=== PATIENT | female | born 1990 | race Caucasian/White ===

== ENCOUNTER 2017-02-04 12:08 | Inpatient (IN) | payer BC ==
[~2017-02-04] VITALS: Ht 172.7 cm; Wt 100.0 kg
[2017-02-04] VITALS (23 sets, daily range): BP systolic 111–153; BP diastolic 68–96; PULSE 69–117; RESP 18–20; TEMP 98
[2017-02-04] MEDS ORDERED: SODIUM CHLORID 0.9% 500 ML INJ 500 ML IV PRN (13:15)
[2017-02-04] MEDS ORDERED: MINERAL OIL 10 ML VIAL TOPICAL PRN (13:15)
[2017-02-04] MEDS ORDERED: CALCIUM GLUCONATE 10% 1 GM/10 ML VIAL IV PUSH PRN ×2 (13:15→19:00)
[2017-02-04] MEDS ORDERED: OXYTOCIN 30 UNITS-500ML PREMIX 500 ML IV ONE (13:15)
[2017-02-04] MEDS ORDERED: CITRIC ACID-SODIUM CITRATE LIQ 30 ML UDC PO SCH (13:15)
[2017-02-04] MEDS ORDERED: LIDOCAINE HCL 1% 50 ML VIAL I-DERMAL PRN (13:15)
[2017-02-04] MEDS ORDERED: SODIUM CHLORIDE 0.9% FLUSH 10 ML FLUSH IV FLUSH PRN (13:15)
[2017-02-04] MEDS ORDERED: LIDOCAINE HCL 1% 50 ML VIAL INFIL PRN (13:15)
[2017-02-04] MEDS ORDERED: ONDANSETRON HCL 4 MG/2 ML VIAL IV PUSH PRN (13:15)
[2017-02-04] MEDS ORDERED: SODIUM CHLOR 0.9% 1000 ML INJ 1,000 ML OTHER PRN (13:15)
--- NOTE | 2017-02-04 13:31 | HHI.HP ---
HPI Chief Complaint term induction for gestational hypertension, proteinuria, concern for PreEclampsia based on symptoms Date Seen: Feb 04, 2017 Time Seen: 13:20 Travel History International Travel<30 Days: No Contact w/Intl Traveler<30Days: No Known Affected Area: No History of Present Illness HPI 26 yo G0 with EDC 02/19/17, EGA 37w6d, was seen earlier today in the office for OB problem visit, complained of new severe swelling of upper & lower extremities , facial puffiness, headache, spots in vision since yesterday. BP in office 140 /80 and 3+ proteinuria on Udip. Pt's prior BP had been normal until earlier this week when 130/76 with 1+ proteinuria when seen 01/31/17. Pt did have PIH labs done including 24h urine which was wnl last week. Pt states having pelvic pressures and irregular tightening, denies regular contractions, VB, LOF. Endorses +FM but decreased over past 24h. had been uncomplicated until past 2 weeks. Pain 2/10 dull throbbing headache R>L. Weeks Gestation: 38 Para: 0 : 1 Last Menstrual Period: May 15, 2016 Miscarriage: 0 : 0 History Past Medical History Narrative Medical gestational hypertension Obstetric History Obstetric History G1 = current Past Surgical History Narrative Surgical denies Family History Family History: Negative Social History Alcohol Use: No Tobacco Use: No Substance Abuse: No Allergies-Medications (Allergen,Severity, Reaction): Coded Allergies: No Known Allergies (Unverified , 02/04/17) Review of Systems General / Constitutional: Weight Gain, No: Fever, Chills, Other Eyes: Blurred Vision, No: Diploplia, Visual changes, Pain, Photophobia HENT: Headaches, No: Vertigo, Lightheadedness Cardiovascular: Edema, No: Irregular Rhythm, Chest Pain or Discomfort, Palpitations, Tachycardia, Syncope, Varicosities, Cyanosis Respiratory: No: Cough, Short of Breath, Other Gastrointestinal: No: Nausea, Vomiting, Diarrhea Genitourinary: Pelvic Pain (pressure), No: Decreased Urinary Output, Oliguria Musculoskeletal: No: Limited ROM, Weakness, Cramping, Edema, Pain Skin: No Rash, No Itching, No Dryness, No Lumps, No Change in Pigmentation, No Change in Nails, No Alopecia, No Lesions Neurologic: No: Weakness, Dizziness, Syncope, Focal Abnormalities, Coordination Problem, Headache, Slurred Speech, Seizures Psychiatric: No: Depression, Suicidal Ideations, Homicidal Ideation Endocrine: No: Heat Intolerance, Cold Intolerance, Polydipsia, Polyuria, Other Physical Exam Narrative GENERAL: Well-nourished, well-developed patient. SKIN: Warm and dry. HEAD: Normocephalic and atraumatic. EYES: No scleral icterus. No injection or drainage. ENT: No nasal drainage noted. Mucous membranes pink. Airway patent. NECK: Supple, trachea midline. No JVD. CARDIOVASCULAR: Regular rate and rhythm without murmurs, gallops, or rubs. RESPIRATORY: Breath sounds equal bilaterally. No accessory muscle use. BREASTS: deferred. ABDOMEN/GI: Abdomen soft, non-tender, bowel sounds present, no rebound, no guarding Gravid to 38 weeks size Fundal Height: [40] GENITOURINARY: External Genitalia: intact and normal in appearance BUS glands: [wnl] Cervix: [posterior] Dilatation: [1] Effacement: [50 Station: [-3] Presentation: [vtx] Membranes: [intact ] FHT's: +FCA 140s in office EXTREMITIES: No cyanosis; +2 edema to shins b/l, R>L only slight difference; no calf tenderness or palpable cords. BACK: Nontender without obvious deformity. No CVA tenderness. NEUROLOGICAL: Awake and alert. Motor and sensory grossly within normal limits. Five out of 5 muscle strength in all muscle groups. Normal speech. Caprini VTE Risk Assessment Caprini VTE Risk Assessment: No/Low Risk (score <= 1) VTE Pharm Contraindication: High risk for bleeding Caprini Risk Assessment Model Point Value = 1 Point Value = 2 Point Value = 3 Point Value = 5 Age 41-60 Minor surgery BMI > 25 kg/m2 Swollen legs Varicose veins or History of unexplained or recurrent spontaneous Oral contraceptives or hormone replacement Sepsis (< 1 month) Serious lung disease, including pneumonia (< 1 month) Abnormal pulmonary function Acute myocardial infarction Congestive heart failure (< 1 month) History of inflammatory bowel disease Medical patient at bed rest Age 61-74 Arthroscopic surgery Major open surgery (> 45 min) Laparoscopic surgery (> 45 min) Malignancy Confined to bed (> 72 hours) Immobilizing plaster cast Central venous access Age >= 75 History of VTE Family history of VTE Factor V Leiden Prothrombin [id number] Lupus anticoagulant Anticardiolipin antibodies Elevated serum homocysteine Heparin-induced thrombocytopenia Other congenital or acquired thrombophilia Stroke (< 1 month) Elective arthroplasty Hip, pelvis, or leg fracture Acute spinal cord injury (< 1 month) Prophylaxis Regimen Total Risk Factor Score Risk Level Prophylaxis Regimen 0-1 Low Early ambulation 2 Moderate Order ONE of the following: *Sequential Compression Device (SCD) *Heparin 5000 units SQ BID 3-4 Higher Order ONE of the following medications: *Heparin 5000 units SQ TID *Enoxaparin/Lovenox 40 mg SQ daily (WT < 150 kg, CrCl > 30 mL/min) *Enoxaparin/Lovenox 30 mg SQ daily (WT < 150 kg, CrCl > 10-29 mL/min) *Enoxaparin/Lovenox 30 mg SQ BID (WT < 150 kg, CrCl > 30 mL/min) AND/OR *Sequential Compression Device (SCD) 5 or more Highest Order ONE of the following medications: *Heparin 5000 units SQ TID (Preferred with Epidurals) *Enoxaparin/Lovenox 40 mg SQ daily (WT < 150 kg, CrCl > 30 mL/min) *Enoxaparin/Lovenox 30 mg SQ daily (WT < 150 kg, CrCl > 10-29 mL/min) *Enoxaparin/Lovenox 30 mg SQ BID (WT < 150 kg, CrCl > 30 mL/min) AND *Sequential Compression Device (SCD) Data Data Vital Signs Reviewed: Yes Orders Orders Admit To Inpatient (02/04/17 ) Diet Liquid (02/04/17 Lunch) ^ Labor Induction (02/04/17 13:15) ^ Vaginal Insert (02/04/17 13:15) ^ Vaginal Lavage (02/04/17 13:15) Heart (02/04/17 13:15) Misoprostol (Cytotec) (02/04/17 13:15) Lactated Ringer's 1000 Ml Inj (Lr 1000 M (02/04/17 13:15) Sodium Chloride 0.9% Flush (Ns Flush) (02/04/17 13:15) Sodium Chloride 0.9% Flush (Ns Flush) (02/04/17 13:15) Sodium Chlor 0.9% 1000 Ml Inj (Ns 1000 M (02/04/17 13:15) Code Status (02/04/17 13:15) Vital Signs (Adult) .Per protocol (02/04/17 13:15) Heart (02/04/17 13:15) Amnioinfusion (02/04/17 13:15) Urinary Catheter Management .ONCE (02/04/17 13:15) Sodium Chlorid 0.9% 500 Ml Inj (Ns 500 M (02/04/17 13:15) Sodium Chlor 0.9% 1000 Ml Inj (Ns 1000 M (02/04/17 13:35) Lidocaine 1% Inj (50 Ml) (Xylocaine 1% I (02/04/17 13:15) Citric Acid-Sodium Citrate Liq (Bicitra (02/04/17 13:15) Ondansetron Inj (Zofran Inj) (02/04/17 13:15) Fentanyl Inj (Fentanyl Inj) (02/04/17 13:15) Fentanyl Inj (Fentanyl Inj) (02/04/17 13:15) Complete Blood Count With Diff (02/04/17 13:15) Hold Clot (02/04/17 13:15) Abo/Rh Blood Type (02/04/17 13:15) Urinalysis - C+S If Indicated (02/04/17 13:15) Drug Screen, Random Urine (02/04/17 13:15) Resp Oxygen Non Rebreathe Mask (02/04/17 ) ^ Epidural / Intrathecal Infus (02/04/17 13:15) Oxytocin 30 Units-500ml Premix (Pitocin (02/04/17 13:15) Lidocaine 1% Inj (50 Ml) (Xylocaine 1% I (02/04/17 13:15) Light Mineral Oil (Muri-Lube Oil) (02/04/17 13:15) Intake + Output Q1H (02/04/17 13:15) Notify Parameters (02/04/17 13:15) ^ Check Deep Tendon Reflexes Q1H (02/04/17 13:15) Nifedipine (Procardia) (02/04/17 13:15) Nifedipine (Procardia) (02/04/17 13:45) Nifedipine (Procardia) (02/04/17 14:00) Calcium Gluconate Inj (Calcium Gluconate (02/04/17 13:15) Cbc No Diff, Includes Plts (02/05/17 06:00) Comprehensive Metabolic Panel (02/04/17 13:15) Comprehensive Metabolic Panel (02/05/17 06:00) Uric Acid (02/04/17 13:15) Uric Acid (02/05/17 06:00) Inpatient Certification (02/04/17 ) Specimen To Be Collected PRN (02/04/17 13:15) Specimen To Be Collected PRN (02/04/17 13:15) Protein Creat Ratio, Random Ur (02/04/17 13:15) Group B Strep: Negative Assessment/Plan Problem List: (1) Gestational hypertension ICD Codes: O13.9 - Gestational [-induced] hypertension without significant proteinuria, unspecified trimester Status: Acute Qualifiers: Qualified Codes: O13.3 - Gestational [-induced] hypertension without significant proteinuria, third trimester (2) Term ICD Codes: Z34.80 - Encounter for supervision of other normal , unspecified trimester Status: Acute Assessment and Plan 26 yo G1 with perea IUP at 37w6d admit for term IOL due to new GHTN and proteinuria, symptoms concerning for PreEclampsia 1) IOL: start with vaginal cytotec, additional methods as needed; pt aware of likely prolonged time frame based on nulliparity and low Koenig score; aware of risk of failed induction and need for ; understands indication for induction, consents 2) GHTN: BPs were normal in office until 35 week, at that time only mild elevated in diastolic, PIH labs and 24h were wnl. Over past week BP 130/76 then 140/80 in office today, 3+ proteinuria today; order PIH labs on admit, urine P/C ratio, watch closely to evaluate need for magnesium sulfate therapy 3) GBS neg 4) status: vertex, female, EFW 7.5# Discharge Planning depending on mode of delivery & blood pressures, anticipate 2-3d Ximena Saini MD Feb 04, 2017 13:31
[2017-02-04] MEDS ORDERED: SODIUM CHLOR 0.9% 1000 ML INJ 1,000 ML IV PRN (13:35)
[2017-02-04] MEDS ORDERED: NIFEdipine 10 MG CAP PO PRN ×4 (13:45→19:00)
[2017-02-04] MEDS ORDERED: MISOPROSTOL 100 MCG TAB VAGINAL ONE (14:00)
[2017-02-04 14:16] LABS: AUTOMATED NEUTROPHIL # 7.7 TH/MM3 (1.8-7.7); BASOPHIL % 0.2 % (0.0-2.0); BLOOD, URINE SMALL (NEG); EOSINOPHIL % 0.1 % (0.0-4.0); GLUCOSE,URINE NEG (NEG); HEMATOCRIT 30.5 % (35.0-46.0); HEMO FLAGS DIFF FINAL; KETONE, URINE 150 mg/dL (NEG); LYMPH % 17.1 % (9.0-44.0); LYMPHOCYTE # 1.7 TH/MM3 (1.0-4.8); MEAN CELL VOLUME 82.6 FL (80.0-100.0); MEAN CORPUSCULAR HEMOGLOBIN 27.5 PG (27.0-34.0); MEAN CORPUSCULAR HGB CONC 33.3 % (32.0-36.0); MONO % 6.3 % (0.0-8.0); NEUT % 76.3 % (16.0-70.0); NITRITE,URINE NEG (NEG); PH, URINE 6.5 (5.0-8.5); PLATELET COUNT 171 TH/MM3 (150-450); RED BLOOD COUNT 3.69 MIL/MM3 (4.00-5.30); RED CELL DISTRIBUTION WIDTH 14.8 % (11.6-17.2); URINE COLOR YELLOW (YELLW/STRAW)
[2017-02-04] MEDS: LACTATED RINGER'S 1000 ML INJ 1,000 ML IV SCH ×2 (14:27→23:00)
[2017-02-04 14:44] LABS: RBC, URINE 0-3 /hpf (0-3)
[2017-02-04 14:45] LABS: BACTERIA, URINE MOD /hpf; COMMENT (UR) CULTURE INDICATED; CULTURE IF INDICATED CULTURE INDICATED; SQUAMOUS EPITHELIAL CELL URINE > 8 /hpf (0-5)
[2017-02-04 14:53] LABS: ALT (GPT) 15 U/L (10-53); ANION GAP 10 MEQ/L (5-15); AST (GOT) 19 U/L (15-37); BICARBONATE 22.6 MEQ/L (21.0-32.0); BLOOD UREA NITROGEN 8 MG/DL (7-18); CHLORIDE 104 MEQ/L (98-107); GLOMERULAR FILTRATION RATE 119 ML/MIN (>89); POTASSIUM 3.6 MEQ/L (3.5-5.1); SODIUM (NA) 137 MEQ/L (136-145)
[2017-02-04 14:55] LABS: ALKALINE PHOSPHATASE 174 U/L (45-117); TOTAL BILIRUBIN ADULT 0.4 MG/DL (0.2-1.0)
--- NOTE | 2017-02-04 16:21 | HHI.PR ---
WATCH MECHANIC Note Note Subjective: 18-year-old G1 at 37 weeks and 6 days here originally for induction of labor for mildly elevated blood pressure in the office and concern for preeclampsia vs GHTN. Patient states she feels well overall, having some abdominal cramping, having a mild headache, no visual changes, epigastric or right upper quadrant pain. O: Blood pressure range since arrival 117-125/68-82 A/P: #1 IUP: Category 1 tracing, continuous EFM and this time, we'll change to twice a day #2 elevated blood pressures: HELLP labs within normal limits, P:C 0.19, patient has a baseline 24-hour urine on 01/27 at 124 mg, will re-collect 24 hour urine and repeat HELLP labs in the AM. Patient's is without a diagnosis at this time , explained this to her, and that based on her gestational age cannot induce without a medical indication, however if her blood pressures elevated and meet criteria for either GHTN or PREC then will proceed with induction, currently hold on her miso, ordered BPP for further reassurance and patient can return to twice a day monitoring 4 hours after PV miso #1 ( placed 1426). Will treat patients headache, continue serial blood pressure monitoring. Also discussed with her that making cervical change will not tocolyze her and explained why the miso was placed and apologized for this at it may have been premature. She and her family were understanding. Luis Mcintosh MD Feb 04, 2017 16:21
[2017-02-04] MEDS ORDERED: PROCHLORPERAZINE INJ 10 MG/2 ML VIAL IV PUSH ONE (16:30)
[2017-02-04] MEDS ORDERED: diphenhydrAMINE HCL 50 MG/ML VIAL IV PUSH ONE (16:30)
[2017-02-04] MEDS ORDERED: SODIUM CHLORIDE 0.9% FLUSH 5 ML FLUSH IV FLUSH PRN (19:00)
[2017-02-04] MEDS: MISOPROSTOL 100 MCG TAB VAGINAL SCH ×2 (19:29→23:39)
[2017-02-04] MEDS ORDERED: SODIUM CHLORIDE 0.9% FLUSH 5 ML FLUSH IV FLUSH SCH (21:00)
[2017-02-05] VITALS (62 sets, daily range): BP systolic 90–143; BP diastolic 52–99; PULSE 63–141; RESP 16–18; TEMP 97.7–99.3
[2017-02-05] MEDS: SODIUM CHLORIDE 0.9% FLUSH 10 ML FLUSH IV FLUSH SCH ×2 (00:57→07:31)
[2017-02-05] MEDS: MISOPROSTOL 100 MCG TAB VAGINAL SCH (03:37)
--- NOTE | 2017-02-05 06:44 | HHI.PR ---
DELIVERY TABLE FEEDER Note Note Subjective: Patient states she feels well overall, having increasing abdominal pain, denies leakage of fluid denies headache, visual changes, epigastric or right upper quadrant pain. O: Blood pressure range overnight: 04/15/19 Exam: 2 cm/50%/-2 station/medium consistency/anterior. Koenig score 7 A/P: 18-year-old G1 at 38 weeks 0 days here today for induction of labor for gestational hypertension, she met blood pressure criteria overnight. #1 IUP: Category 1 tracing, continuous EFM - EFW 7 at 8 pounds, cephalic, GBS negative - Posterior placenta #2 gestational hypertension: BP rate as above, HELLP labs normal arrival, no need to repeat at this time #3: Induction of labor: Secondary to #2, status post PVD mesial 20 g, #4 platelets 0 3:30, exam favorable this morning, begin Pitocin after she eats ambulatory, then patient may be on clear liquids. Patient will desire epidural later Luis Mcintosh MD Feb 05, 2017 06:44
[2017-02-05] MEDS ORDERED: OXYTOCIN 30 UNITS-500ML PREMIX 500 ML IV SCH ×2 (06:45→22:15)
[2017-02-05] MEDS: LACTATED RINGER'S 1000 ML INJ 1,000 ML IV SCH (07:29)
[2017-02-05] MEDS: ACETAMINOPHEN 325 MG TAB PO PRN (07:42)
--- NOTE | 2017-02-05 12:24 | HHI.PR ---
SHINGLES ROOFER HELPER Note Note Subjective: Went to evaluate patient, patient concerned about her labor progress, very emotional and has anxiety about safety of her baby. Her anxiety has been a pre-existing problem throughout the . O: Exam: 3 cm/70%/-2, AROM this check, clear fluid. A/P: 18-year-old G1 at 38 weeks 0 days here today for induction of labor for gestational hypertension, she met blood pressure criteria overnight. #1 IUP: Category 1 tracing, continuous EFM - EFW 7 - 8 pounds, cephalic, GBS negative - Posterior placenta #2 gestational hypertension: BP mostly normotensive, some mild ranges, HELLP labs normal arrival, no need to repeat at this time #3: Induction of labor: Secondary to #2, status post PV miso 25mcg, #4 (@0330), pit at 12 currently AROM this check (@ 1228). Continue to titrate pit. Patient will desire epidural later - Had a long discussion with patient and her partner about her labor course, reassured her it is not out of the ordinary to have a prolonged induction given unfavorable cervix on arrival and that she has a 1. Discussed options including mechanical dilation with Cook catheter versus artificial rupture membranes, her goal is to avoid AROM as long as possible. She'll doubly tell that she is most comfortable with artificial rupture, Luis Mcintosh MD Feb 05, 2017 12:24
[2017-02-05] MEDS ORDERED: ePHEDrine/NS 25 MG/5 ML SYR ONE (14:47)
[2017-02-05] MEDS ORDERED: fentaNYL 2MCG-BUPIV 0.125% INJ 100 ML ONE (14:47)
[2017-02-05] MEDS ORDERED: fentaNYL 2MCG-BUPIV 0.125% 100 ML EPIDURAL SCH (15:30)
[2017-02-05] MEDS ORDERED: NO SYSTEM NARCOTICS PRN (15:30)
[2017-02-05] MEDS ORDERED: DO NOT ADMINISTER ANTICOAGULANTS PRN (15:30)
[2017-02-05] MEDS ORDERED: ePHEDrine/NS 25 MG/5 ML SYR IV PUSH PRN (15:30)
[2017-02-05] MEDS ORDERED: MEASLES, MUMPS, RUBELLA VACCINE 0.5 ML VIAL SQ ONE (16:00)
[2017-02-05] MEDS ORDERED: DIPHTH/TETANUS/ACEL PERTUSSIS (BOOSTER) 0.5 ML VIAL/PFS IM ONE (16:00)
--- NOTE | 2017-02-05 18:07 | HHI.PR ---
WEB SIZER Note Note Subjective: Feeling comfortable after epidural, overall doing well. O: Exam: 7 cm/70%/-1. IUPC placed. A/P: 18-year-old G1 at 38 weeks 0 days here today for induction of labor for gestational hypertension, she met blood pressure criteria overnight. #1 IUP: Category 1 tracing, continuous EFM - EFW 7 - 8 pounds, cephalic, GBS negative - Posterior placenta #2 gestational hypertension: BP continue to be mostly normotensive, some mild ranges, HELLP labs normal arrival, no need to repeat at this time #3: Induction of labor: Secondary to #2, status post PV miso 25mcg, #4 (@0330), s/p AROM (@ 1228). IUPC placed to better titrate Pitocin and monitor contractions - Comfortable status post epidural. Luis Mcintosh MD Feb 05, 2017 18:07
[2017-02-05] MEDS ORDERED: IBUP-232 PO (19:46)
--- NOTE | 2017-02-05 19:48 | HHI.DCPOC ---
Discharge Care Plan Diagnosis: (1) Term (2) Normal vaginal delivery (3) Gestational hypertension Your Health Problems Are: Vaginal delivery Report Symptoms to Your Doctor -Temperature above 100.5 degrees -Redness, of incision or excessive or foul smelling drainage -Unusual pain or calf pain -Increased vaginal bleeding -Painful or difficulty urinating -Feelings of extreme sadness or anxiety after 2 weeks Goals to Promote Your Health * To prevent worsening of your condition and complications * To maintain your health at the optimal level Directions to Meet Your Goals Take your medications as prescribed Follow your dietary instruction Follow activity as directed Ensure plenty of rest for recovery Drink fluids for hydration Keep your appointments as scheduled Take your immunizations and boosters as scheduled If your symptoms worsen call your PCP, if no PCP go to Urgent Care Center or Emergency Room Smoking is Dangerous to Your Health. Avoid second hand smoke Call the 24-hour crisis hotline for domestic abuse at Luis Mcintosh MD Feb 05, 2017 19:48
[2017-02-05] MEDS ORDERED: LIDOCAINE 2%/EPINEPHrine PF 1:200,000 20ML SDV ONE (20:29)
--- NOTE | 2017-02-05 20:33 | PD.OB.DELI ---
Weeks gestation: 38 Gest age assessed date: Feb 05, 2017 Gest age assessed time: 20:00 Pt started active labor?: No Medical induction of labor?: Yes Artificial rupture of membrane: Yes Anesthesia: Epidural Episiotomy: None Vaginal Delivery: Normal, Spontaneous Presentation: Occiput anterior Nuchal Cord: None Infant: Female, Single Delivery date: Feb 05, 2017 Delivery time: 20:06 One Minute : 8 Five Minute : 9 Placenta: Spontaneous delivery, Intact (at 2014) Additional Information The patient was admitted for induction secondary to gestational hypertension, she received measles also, was artificially ruptured, and started on Pitocin. She progressed to complete, received an epidural for anesthesia, pressing complete, the bed was broken down and the prepared perineum was supported head delivered and was allowed to restitue naturally with gentle downward and upward guidance anterior and posterior shoulder were delivered respectively, followed by the torso and lower extremities with ease. Infant had spontaneous cry, the cord was clamped and cut. The perineum and vagina were inspected and found to have multiple lacerations there are extensive, extending along the vaginal sidewall up toward the cervix, there is poor visualization in the delivery room and the patient was taken operating room for repair (please see separate note for details), a single lap pad was placed in the vagina for tamponade, overall there was not excessive bleeding. The uterus firm and the patient was stable. Luis Mcintosh MD Feb 05, 2017 20:33
[2017-02-05] MEDS ORDERED: BENZOCAINE 20% TOPICAL SPRAY 60 ML CAN TOPICAL PRN (22:15)
[2017-02-05] MEDS ORDERED: ACETAMINOPHEN 325 MG TAB PO PRN (22:15)
[2017-02-05] MEDS ORDERED: ZOLPIDEM TARTRATE 5 MG TAB PO PRN (22:15)
[2017-02-05] MEDS ORDERED: ONDANSETRON ODT 4 MG TAB PO PRN (22:15)
[2017-02-05] MEDS ORDERED: oxyCODONE/ACETAMINOPHEN 5 MG/325 MG TAB PO PRN ×2 (22:15)
[2017-02-05] MEDS ORDERED: SODIUM CHLORIDE 0.9% FLUSH 10 ML FLUSH IV FLUSH PRN (22:15)
[2017-02-05] MEDS ORDERED: WITCH HAZEL 50%/GLYCERIN 12.5% 40 PAD JAR TOPICAL PRN (22:15)
[2017-02-05] MEDS ORDERED: ALUMINUM/MAGNESIUM/SIMETH 30 ML CUP PO PRN (22:15)
--- NOTE | 2017-02-05 22:19 | PD.OP ---
Operative Report Date of Surgery: Feb 05, 2017 Preoperative Diagnosis: (1) Laceration of vagina Postoperative Diagnosis: (1) Laceration of vagina Procedure: Evaluation under anesthesia and repair of vaginal lacerations Anesthesia: Epidural and TIVA Surgeon: Luis Mcintosh Paint Line Operator(s): none Operation and Findings: Specimens: None Estimated blood loss: 300 cc Complications: None Counts: Correct 2 Timeout done: Correct Findings: Large left vaginal sidewall laceration extending two [address] up the vagina to the cervix, pelvic fat visible, second-degree perineal laceration and left labial minora laceration. Urine output: None recorded, Guevara placed at the end of the case Disposition: Stable to recovery then to . Will monitor strict I's and O's, collect CBC and BMP in the morning. Description: The patient following her vaginal delivery was taken to the operating room [facility], the vaginal was prepped and draped in the sterile fashion, Deavers were placed in the vagina for visualization, using 3-0 Vicryl all lacerations were repaired, the vaginal lacerations repaired with running and several [id number] and the labial with interrupted. There is no brisk bleeding appreciated. The extent of the lacerations to lap pads were tied together and placed in the vagina for packing. A Guevara was inserted. Luis Mcintosh MD Feb 05, 2017 22:19
[2017-02-05] MEDS: IBUPROFEN 800 MG TAB PO PRN (23:51)
[2017-02-06] MEDS ORDERED: LACTATED RINGER'S 1000 ML INJ 500 ML IV ONE (05:45)
[2017-02-06 05:51] LABS: AUTOMATED NEUTROPHIL # 9.5 TH/MM3 (1.8-7.7); BASOPHIL % 0.1 % (0.0-2.0); HEMATOCRIT 24.4 % (35.0-46.0); HEMO FLAGS DIFF FINAL; LYMPH % 9.7 % (9.0-44.0); LYMPHOCYTE # 1.1 TH/MM3 (1.0-4.8); MEAN CELL VOLUME 83.4 FL (80.0-100.0); MEAN CORPUSCULAR HEMOGLOBIN 27.2 PG (27.0-34.0); MEAN CORPUSCULAR HGB CONC 32.6 % (32.0-36.0); MONO % 8.6 % (0.0-8.0); NEUT % 81.6 % (16.0-70.0); PLATELET COUNT 142 TH/MM3 (150-450); RED BLOOD COUNT 2.92 MIL/MM3 (4.00-5.30); RED CELL DISTRIBUTION WIDTH 15.4 % (11.6-17.2); WHITE BLOOD COUNT 11.7 TH/MM3 (4.0-11.0)
[2017-02-06] MEDS: IBUPROFEN 800 MG TAB PO PRN ×2 (06:11→15:25)
[2017-02-06] MEDS: DOCUSATE SODIUM 50 MG/SENNA 8.6 MG TAB PO PRN ×2 (06:11→21:37)
[2017-02-06] MEDS: SODIUM CHLORIDE 0.9% FLUSH 10 ML FLUSH IV FLUSH SCH (06:12)
[2017-02-06] MEDS: ACETAMINOPHEN 325 MG TAB PO PRN ×3 (06:12→21:37)
[2017-02-06 06:16] LABS: BICARBONATE 23.9 MEQ/L (21.0-32.0); POTASSIUM 3.6 MEQ/L (3.5-5.1)
[2017-02-06] MEDS ORDERED: HYDROCORTISONE/PRAMOXINE RECTAL FOAM 10 GM CAN RECTAL PRN (08:00)
--- NOTE | 2017-02-06 08:47 | HHI.OB ---
Subjective Post Day: 1 Remarks pt did well overnight, pain controlled w/ motrin, TPO no n/v, some cramping, having some rectal pains, denies dizziness or dyspnea Objective Vitals/I&O Vital Signs Date Time Temp Pulse Resp B/P (MAP) Pulse Ox O2 Delivery O2 Flow Rate FiO2 02/05/17 22:30 18 02/05/17 22:12 99.3 103 16 111/54 (73) 02/05/17 20:16 128 137/74 (95) 02/05/17 19:30 141 131/70 (90) 02/05/17 19:09 97 136/73 (94) 02/05/17 19:00 97 134/81 (98) 02/05/17 18:40 100 124/76 (92) 02/05/17 18:26 98.4 18 02/05/17 18:20 100 114/71 (85) 02/05/17 18:00 111 102/53 (69) 02/05/17 17:40 86 107/55 (72) 02/05/17 17:20 81 102/58 (73) 02/05/17 17:00 83 123/76 (92) 02/05/17 16:40 73 123/70 (87) 02/05/17 16:21 80 134/82 (99) 02/05/17 16:00 84 105/55 (72) 02/05/17 15:45 102 109/56 (73) 02/05/17 15:42 98 109/55 (73) 02/05/17 15:41 83 115/56 (75) 02/05/17 15:39 72 112/59 (76) 02/05/17 15:35 98 129/76 (93) 02/05/17 15:35 91 02/05/17 15:30 92 90/52 (65) 02/05/17 15:30 88 02/05/17 15:25 84 120/69 (86) 02/05/17 15:25 79 02/05/17 15:20 81 02/05/17 15:20 95 120/63 (82) 02/05/17 15:16 97.8 18 02/05/17 15:15 92 02/05/17 15:15 16 02/05/17 15:15 90 122/68 (86) 02/05/17 15:10 97 02/05/17 15:10 93 125/82 (96) 02/05/17 15:07 101 129/82 (98) 02/05/17 15:05 107 02/05/17 15:00 104 02/05/17 15:00 104 130/81 (97) 02/05/17 14:30 76 130/79 (96) 02/05/17 14:01 64 131/72 (91) 02/05/17 13:30 74 135/80 (98) 02/05/17 13:07 98.3 18 02/05/17 13:00 74 129/77 (94) 02/05/17 12:45 18 02/05/17 12:30 72 128/75 (92) 02/05/17 11:40 93 02/05/17 11:35 101 02/05/17 11:30 101 02/05/17 11:30 102 143/99 (114) 02/05/17 11:25 86 02/05/17 11:20 77 02/05/17 11:15 86 02/05/17 11:10 87 02/05/17 11:00 85 123/81 (95) 02/05/17 10:39 79 121/76 (91) 02/05/17 10:00 89 02/05/17 10:00 84 109/68 (82) 02/05/17 09:55 88 02/05/17 09:50 86 02/05/17 09:45 89 02/05/17 09:40 82 02/05/17 09:35 84 02/05/17 09:30 79 02/05/17 09:30 82 114/71 (85) 02/05/17 09:00 81 115/80 (92) 02/05/17 09:00 93 Objective Remarks GENERAL: Well-nourished, well-developed patient. CARDIOVASCULAR: Regular rate and rhythm without murmurs, gallops, or rubs. RESPIRATORY: Breath sounds equal bilaterally. No accessory muscle use. ABDOMEN/GI: Abdomen soft, non-tender. Fundus: Firm, non-tender at umbilicus. GENITOURINARY: Removed farah and also removed both lap pads, not soaked with blood but stained, no vaginal bleeding appreciated after. EXTREMITIES: No cyanosis or edema, non-tender, without signs of DVT, SCDs on. Medications and IVs Current Medications Medications (Trade) Dose Ordered Sig/Lilli Route Start Time Stop Time Status Last Admin (Calcium Gluconate Inj) 1 gm UNSCH PRN IV PUSH 02/04/17 13:15 (Tylenol) 650 mg Q4H PRN PO 02/04/17 16:30 02/06/17 06:12 Miscellaneous Information No systemic narcotics to be given except... UNSCH PRN .XX 02/05/17 15:30 02/06/17 15:29 Miscellaneous Information DO NOT ADMINISTER ANY ANTICOAGUL... UNSCH PRN .XX 02/05/17 15:30 02/06/17 15:29 (ePHEDrine/NS 25 MG/5 ML SYR) 10 mg UNSCH PRN IV PUSH 02/05/17 15:30 02/06/17 15:29 (fentaNYL INJ) 50 mcg Q1H PRN IV PUSH 02/05/17 18:30 (fentaNYL INJ) 100 mcg Q1H PRN IV PUSH 02/05/17 18:30 (NS Flush) 2 ml BID IV FLUSH 02/06/17 21:00 02/06/17 06:12 (NS Flush) 2 ml UNSCH PRN IV FLUSH 02/05/17 22:15 (Tylenol) 650 mg Q4H PRN PO 02/05/17 22:15 (Motrin) 800 mg Q8H PRN PO 02/05/17 22:15 02/06/17 06:11 (Percocet 5-325 Mg) 1 tab Q4H PRN PO 02/05/17 22:15 (Percocet 5-325 Mg) 2 tab Q4H PRN PO 02/05/17 22:15 (Americaine 20% Top Spr) 1 spray Q4H PRN TOPICAL 02/05/17 22:15 02/05/17 23:58 (Tucks Pads) 1 applic QID PRN TOPICAL 02/05/17 22:15 02/05/17 23:57 (Elizabeth-Colace) 2 tab Q12H PRN PO 02/05/17 22:15 02/06/17 06:11 (Ambien) 5 mg HS PRN PO 02/05/17 22:15 (Mag-Al Plus Susp Liq) 15 ml Q8H PRN PO 02/05/17 22:15 (Zofran Odt) 4 mg Q6H PRN PO 02/05/17 22:15 (Proctofoam Hc Rectal Foam) 1 applic Q8H PRN RECTAL 02/06/17 08:00 Assessment/Plan Problem List: (1) Gestational hypertension ICD Codes: O13.9 - Gestational [-induced] hypertension without significant proteinuria, unspecified trimester Status: Acute Qualifiers: Qualified Codes: O13.3 - Gestational [-induced] hypertension without significant proteinuria, third trimester (2) Laceration of vagina ICD Codes: S31.41XA - Laceration without foreign body of vagina and vulva, initial encounter (3) Normal vaginal delivery ICD Codes: O80 - Encounter for full-term uncomplicated delivery Assessment and Plan 26 yo s/p term , was IOL for GHTN. 1) PPD #1: doing well, continue routine care, anticipate d/c home tomorrow. 2) Vaginal laceration: extensive, required repair in OR last night after delivery, packing and farah removed this AM, output appropriate, not recorded correctly by nursing but voided 100 cc an hour this AM. AM CBC seems appropriate for EBL, will repeat tomorrow AM as she is increased risk of vaginal hematoma. 3) Anemia: see above, will d/c with Fe and colace 4) GHTN: BPS normotensive since delivery. 5) PP: female, breast. Discharge Planning depending on mode of delivery & blood pressures, anticipate 2-3d Luis Mcintosh MD Feb 06, 2017 08:47
[2017-02-06] MEDS ORDERED: NORC5TAB PO (08:49)
[2017-02-06] MEDS ORDERED: COLA100C5 PO (08:50)
[2017-02-06] MEDS ORDERED: FERR325T18 PO (08:51)
[2017-02-06] MEDS ORDERED: ACETAMINOPHEN/HYDROcodone 325 MG/5 MG TAB PO PRN ×2 (09:00)
[2017-02-07] MEDS: IBUPROFEN 800 MG TAB PO PRN ×2 (02:46→11:29)
[2017-02-07] MEDS: SODIUM CHLORIDE 0.9% FLUSH 10 ML FLUSH IV FLUSH SCH (05:51)
[2017-02-07 05:59] LABS: AUTOMATED NEUTROPHIL # 8.4 TH/MM3 (1.8-7.7); BASOPHIL % 0.2 % (0.0-2.0); EOSINOPHIL % 0.3 % (0.0-4.0); HEMATOCRIT 22.2 % (35.0-46.0); HEMO FLAGS DIFF FINAL; LYMPH % 13.6 % (9.0-44.0); LYMPHOCYTE # 1.5 TH/MM3 (1.0-4.8); MEAN CELL VOLUME 84.3 FL (80.0-100.0); MEAN CORPUSCULAR HEMOGLOBIN 27.5 PG (27.0-34.0); MEAN CORPUSCULAR HGB CONC 32.6 % (32.0-36.0); MONO % 7.5 % (0.0-8.0); NEUT % 78.4 % (16.0-70.0); PLATELET COUNT 137 TH/MM3 (150-450); RED BLOOD COUNT 2.63 MIL/MM3 (4.00-5.30); RED CELL DISTRIBUTION WIDTH 15.4 % (11.6-17.2); WHITE BLOOD COUNT 10.7 TH/MM3 (4.0-11.0)
[2017-02-07] MEDS: ACETAMINOPHEN 325 MG TAB PO PRN ×2 (07:12→11:30)
[2017-02-07 07:55] VITALS: BP 122/71; PULSE 67; RESP 18; TEMP 97.9
--- NOTE | 2017-02-07 08:56 | HHI.OB ---
Subjective Post Day: 2 Remarks PPD#2, S/P traumatic vaginal delivery with extensive repair, BM today,voiding, pain controlled. Is anemic but no orthostatic symptoms. Objective Vitals/I&O Vital Signs Date Time Temp Pulse Resp B/P (MAP) Pulse Ox O2 Delivery O2 Flow Rate FiO2 02/07/17 03:46 18 02/06/17 22:37 18 Objective Remarks GENERAL: Well-nourished, well-developed patient. CARDIOVASCULAR: Regular rate and rhythm without murmurs, gallops, or rubs. RESPIRATORY: Breath sounds equal bilaterally. No accessory muscle use. ABDOMEN/GI: Abdomen soft, non-tender. Fundus: Firm, non-tender at umbilicus. GENITOURINARY: defered, no excessive bleeding/pain. EXTREMITIES: No cyanosis or edema, non-tender, without signs of DVT, SCDs on. Medications and IVs Current Medications Medications (Trade) Dose Ordered Sig/Lilli Route Start Time Stop Time Status Last Admin (Calcium Gluconate Inj) 1 gm UNSCH PRN IV PUSH 02/04/17 13:15 (Tylenol) 650 mg Q4H PRN PO 02/04/17 16:30 02/07/17 07:12 (fentaNYL INJ) 50 mcg Q1H PRN IV PUSH 02/05/17 18:30 (fentaNYL INJ) 100 mcg Q1H PRN IV PUSH 02/05/17 18:30 (NS Flush) 2 ml BID IV FLUSH 02/06/17 21:00 02/07/17 05:51 (NS Flush) 2 ml UNSCH PRN IV FLUSH 02/05/17 22:15 (Motrin) 800 mg Q8H PRN PO 02/05/17 22:15 02/07/17 02:46 (Americaine 20% Top Spr) 1 spray Q4H PRN TOPICAL 02/05/17 22:15 02/05/17 23:58 (Tucks Pads) 1 applic QID PRN TOPICAL 02/05/17 22:15 02/05/17 23:57 ([place]-Colace) 2 tab Q12H PRN PO 02/05/17 22:15 02/06/17 21:37 (Ambien) 5 mg HS PRN PO 02/05/17 22:15 (Mag-Al Plus Susp Liq) 15 ml Q8H PRN PO 02/05/17 22:15 (Zofran Odt) 4 mg Q6H PRN PO 02/05/17 22:15 (Proctofoam Hc Rectal Foam) 1 applic Q8H PRN RECTAL 02/06/17 08:00 02/06/17 16:36 ([place] 5-325 Mg) 1 tab Q6H PRN PO 02/06/17 09:00 ([place] 5-325 Mg) 2 tab Q6H PRN PO 02/06/17 09:00 Assessment/Plan Problem List: (1) Gestational hypertension ICD Codes: O13.9 - Gestational [-induced] hypertension without significant proteinuria, unspecified trimester Status: Acute Qualifiers: Qualified Codes: O13.3 - Gestational [-induced] hypertension without significant proteinuria, third trimester (2) Laceration of vagina ICD Codes: S31.41XA - Laceration without foreign body of vagina and vulva, initial encounter (3) Normal vaginal delivery ICD Codes: O80 - Encounter for full-term uncomplicated delivery Assessment and Plan 26 yo s/p term , was IOL for GHTN. 1) PPD #2: doing well, continue routine care, anticipate d/c home after repeat hgb, 2) Vaginal laceration: extensive, required repair in OR. pain under control. will discharge to home after repeat H+h 3) Anemia: see above, will d/c with Fe and colace 4) GHTN: BPS normotensive since delivery. 5) PP: female, breast. Discharge Planning await hgb results, return to office in 1 week.home care/precautions given. Attending Attestation seen by Ted Clements MD Feb 07, 2017 08:56
[2017-02-07 11:55] LABS: HEMATOCRIT 24.5 % (35.0-46.0); REVIEW FLAG FINAL
[2017-02-10] MEDS ORDERED: FOLI1CAP7 PO (18:09)
[2017-02-10] MEDS ORDERED: ZOLO50TA PO (18:09)
[2017-02-10] MEDS ORDERED: PREN29TA PO (18:10)
== END 2017-02-07 15:13 | disposition home or self-care (01) | DRG 775 ==
LOC: H2EA 12:08 → H1EA 02-05 22:51
PROVIDERS: ADMIT Obstetrics & Gynecology; ATTEND Obstetrics & Gynecology
PROC: 3E0P7VZ Introduction of Hormone into Female Reproductive, Via Natural or Artificial Opening (ICD-10-PCS; 2017-02-04)
PROC: 10E0XZZ Delivery of Products of Conception, External Approach (ICD-10-PCS; principal; 2017-02-05)
PROC: 0KQM0ZZ Repair Perineum Muscle, Open Approach (ICD-10-PCS; 2017-02-05)
PROC: 0UQMXZZ Repair Vulva, External Approach (ICD-10-PCS; 2017-02-05)
PROC: 10907ZC Drainage of Amniotic Fluid, Therapeutic from Products of Conception, Via Natural or Artificial Opening (ICD-10-PCS; 2017-02-05)
PROC: 10H07YZ Insertion of Other Device into Products of Conception, Via Natural or Artificial Opening (ICD-10-PCS; 2017-02-05)
PROC: 3E0R3BZ Introduction of Anesthetic Agent into Spinal Canal, Percutaneous Approach (ICD-10-PCS; 2017-02-05)
PROC: 00HU33Z Insertion of Infusion Device into Spinal Canal, Percutaneous Approach (ICD-10-PCS; 2017-02-05)
DX: O13.4 Gestational [pregnancy-induced] hypertension without significant proteinuria, complicating childbirth (principal); O71.4 Obstetric high vaginal laceration alone; O99.344 Other mental disorders complicating childbirth; F41.9 Anxiety disorder, unspecified; O12.14 Gestational proteinuria, complicating childbirth; O70.1 Second degree perineal laceration during delivery; O70.0 First degree perineal laceration during delivery; D64.9 Anemia, unspecified; O99.02 Anemia complicating childbirth; Z37.0 Single live birth; Z3A.38 38 weeks gestation of pregnancy
CPT/HCPCS: 59025; 80048; 80053; 80307; 81001; 82570; 84156; 84550; 85014; 85018; 85025; 86900; 86901; 87086; 90715; J2590; J7120

== ENCOUNTER 2017-02-08 21:28 | Emergency (ER) | payer BC ==
[~2017-02-08] VITALS: Ht 172.7 cm; Wt 90.0 kg
[~2017-02-08 21:28] MED LIST: COLA100C5 PO; FERR325T18 PO; IBUP-232 PO; NORC5TAB PO
[2017-02-08 21:33] VITALS: BP 138/79; PULSE 83; RESP 16; TEMP 98.7; O2SAT 100
[2017-02-08 21:51] VITALS: BP 123/65; PULSE 79; RESP 15; O2SAT 99
[2017-02-08 21:53] VITALS: RESP 15; O2SAT 100
[2017-02-08 22:18] LABS: AUTOMATED NEUTROPHIL # 6.9 TH/MM3 (1.8-7.7); BASOPHIL # 0.1 TH/MM3 (0-0.2); BASOPHIL % 0.6 % (0.0-2.0); EOSINOPHIL # 0.1 TH/MM3 (0-0.4); EOSINOPHIL % 0.9 % (0.0-4.0); HEMATOCRIT 22.4 % (35.0-46.0); HEMO FLAGS DIFF FINAL; LYMPH % 17.2 % (9.0-44.0); LYMPHOCYTE # 1.6 TH/MM3 (1.0-4.8); MEAN CELL VOLUME 83.9 FL (80.0-100.0); MEAN CORPUSCULAR HEMOGLOBIN 27.2 PG (27.0-34.0); MEAN CORPUSCULAR HGB CONC 32.4 % (32.0-36.0); MONO % 7.7 % (0.0-8.0); NEUT % 73.6 % (16.0-70.0); PLATELET COUNT 208 TH/MM3 (150-450); RED BLOOD COUNT 2.67 MIL/MM3 (4.00-5.30); RED CELL DISTRIBUTION WIDTH 15.7 % (11.6-17.2); WHITE BLOOD COUNT 9.3 TH/MM3 (4.0-11.0)
--- NOTE | 2017-02-08 22:22 | RADRPT ---
EXAM DATE/TIME: 02/08/2017 22:03 [facility] COMPARISON: No previous studies available for comparison. INDICATIONS : Short of breath. MEDICAL HISTORY : None. SURGICAL HISTORY : None. ENCOUNTER: Initial ACUITY: 1 day PAIN SCORE: 0/10 LOCATION: Bilateral chest FINDINGS: A single view of the chest demonstrates the lungs to be symmetrically aerated without evidence of mas s, infiltrate or effusion. The cardiomediastinal contours are unremarkable. Osseous structures are intact. CONCLUSION: The lungs are clear. Román Medina MD on February 08, 2017 at 22:20 Board Certified Radiologist. This report was verified electronically.
--- NOTE | 2017-02-08 22:30 | PD ---
HPI Chief Complaint: Headache Time Seen by Provider: 21:46 Travel History International Travel<30 days: No Contact w/Intl Traveler<30days: No Traveled to known affect area: No History of Present Illness HPI The patient is a 26 year old female who presents to the [facility] emergency department with a history of being day #3 status post vaginal delivery of a 7 lbs. 3 oz. baby. The patient reports that her was complicated by gestational hypertension that was finally classified according to her as preeclampsia. The patient denies being on any blood pressure medications during the . She reports that her delivery was complicated by having an extensive vaginal tear that required treatment and repair in the operating room after delivery. The patient reports that she did become anemic related to the vaginal bleeding. She denies receiving a blood transfusion. She has not yet started on her iron supplement. The patient reports that the baby is still in the hospital related to jaundice. She is breast and bottle feeding. The patient presents today to the emergency department with increased swelling in her legs. She reports that since 34-35 weeks of gestation she has had lower extremity edema, however now it is up to mid calf. The patient also reports that her high blood pressure had resolved after delivery, however when she was upstairs visiting her baby and the pediatric unit she felt a headache behind the right eye that she reports is mild , mildly blurry/unfocused vision and they did check her blood pressure was noted be 152 systolic. The patient then decided to come to the emergency department for evaluation for possible recurrence of preeclampsia. She reports that her lochia is decreasing. Otherwise on review of systems, she denies having any fevers, cough, congestion, neck pain, chest pain, shortness of breath , worsening abdominal pain, vomiting, diarrhea, urinary symptoms, or other neurologic symptoms. [facility] Past Medical History Narrative Medical The patient's past medical history is significant for asthma, history of gestational hypertension, and astigmatism. Asthma: Yes Diminished Hearing: No Reproductive: Yes (PRE-ECLAMPSIA) Tetanus Vaccination: < 5 Years Influenza Vaccination: No ?: Not Past Surgical History Narrative Surgical The patient's past surgical history is significant for vaginal tear repair postdelivery. Gynecologic Surgery: Yes Oral Surgery: Yes (WISDOM TEETH) Social History Alcohol Use: No Tobacco Use: No Substance Use: No Allergies-Medications (Allergen,Severity, Reaction): Coded Allergies: No Known Allergies (Unverified , 02/08/17) Reported Meds & Prescriptions Reported Meds & Active Scripts Active Ferrous Sulfate 325 Mg (65 Mg Iron) Tablet 325 Mg PO BIDPC Colace (Docusate Sodium) 100 Mg Capsule 1 Tab PO BID [place] (Hydrocodone-Acetaminophen) 5 Mg-325 Mg Tab 1 Tab PO Q4H PRN use for breakthrough pain Ibuprofen 600 Mg Tab 600 Mg PO Q6H PRN Review of Systems Except as stated in HPI: all other systems reviewed are Neg General / Constitutional: No: Fever Eyes: No: Visual changes HENT: Positive: Headaches, No: Neck Stiffness, Neck Pain Cardiovascular: Positive: Edema, No: Chest Pain or Discomfort Respiratory: No: Shortness of Breath Gastrointestinal: Positive: Nausea, Changes in Bowel Habits (the patient's stool is soft with unusual and she is on a stool softener.), No: Vomiting, Diarrhea, Abdominal Pain Genitourinary: No: Urgency, Frequency, Dysuria Musculoskeletal: No: Pain Skin: No Rash Neurologic: Positive: Headache, No: Weakness, Focal Abnormalities, Change in Mentation, Slurred Speech, Sensory Disturbance Psychiatric: No: Depression Endocrine: No: Polydipsia Hematologic/Lymphatic: No: Easy Bruising Physical Exam Narrative General: The patient is a well-developed well-nourished female in no acute distress. Head and Neck exam: Head is normocephalic atraumatic. Eyes: EOMI, pupils are equal round and reactive to light. Nose: Midline septum with pink mucous membranes Mouth: Dentition unremarkable. Moist mucus membranes. Posterior oropharynx is not erythematous. No tonsillar hypertrophy. Uvula midline. Airway patent. Neck: No palpable lymphadenopathy. No nuchal rigidity. No thyromegaly. Cardiovascular: Regular rate and rhythm without murmurs, gallops, or rubs. Lungs: Clear to auscultation bilaterally. No wheezes, rhonchi, or rales. Abdomen: Soft, without tenderness to palpation in all 4 quadrants of the abdomen. No guarding, rebound, or rigidity. Normal bowel sounds are audible. No tenderness on palpation of McBurney's point. The patient's fundus is firm and palpable down in the pelvis. Extremities: No clubbing or cyanosis. 2+ pulses in all 4 extremities. The patient has 1+ pitting edema bilateral lower extremities. No calf tenderness on palpation. Back: No spinous process tenderness to palpation. No costovertebral angle tenderness to palpation. Neurologic Exam: Grossly nonfocal. Skin Exam: No rash noted. Intact skin that is warm and dry. Data Data Last Documented VS Vital Signs Date Time Temp Pulse Resp B/P (MAP) Pulse Ox O2 Delivery O2 Flow Rate FiO2 02/08/17 21:53 15 100 Room Air 02/08/17 21:51 79 02/08/17 21:33 98.7 Orders Orders Electrocardiogram (02/08/17 21:47) Complete Blood Count With Diff (02/08/17 21:47) Comprehensive Metabolic Panel (02/08/17 21:47) Creatine Kinase (Cpk) (02/08/17 21:47) Ckmb (Isoenzyme) Profile (02/08/17:47) Troponin I (02/08/17:47) B-Type Natriuretic Peptide (02/08/17 21:47) Prothrombin Time / Inr (Pt) (02/08/17:47) Act Partial Throm Time (Ptt) (02/08/17 21:47) Lipase (02/08/17 21:47) Urinalysis - C+S If Indicated (02/08/17 21:47) Magnesium (Mg) (02/08/17 21:47) Chest, Single Ap (02/08/17 21:47) Ct Brain W/O Iv Contrast(Rout) (02/08/17 21:47) Iv Access Insert/Monitor (02/08/17 21:47) Ecg Monitoring (02/08/17 21:47) Oximetry (02/08/17 21:47) Us Leg Venous Doppler Bilat (02/08/17 22:30) CKMB (02/08/17 22:00) CKMB% (02/08/17 22:00) Acetaminophen (Tylenol) (02/08/17 23:15) Urine Culture (02/08/17 22:48) Ed Discharge Order (02/08/17 23:29) Labs Laboratory Tests Test 02/08/17 22:00 02/08/17 22:48 White Blood Count 9.3 TH/MM3 Red Blood Count 2.67 MIL/MM3 Hemoglobin 7.3 GM/DL Hematocrit 22.4 % Mean Corpuscular Volume 83.9 FL Mean Corpuscular Hemoglobin 27.2 PG Mean Corpuscular Hemoglobin Concent 32.4 % Red Cell Distribution Width 15.7 % Platelet Count 208 TH/MM3 Mean Platelet Volume 9.0 FL Neutrophils (%) (Auto) 73.6 % Lymphocytes (%) (Auto) 17.2 % Monocytes (%) (Auto) 7.7 % Eosinophils (%) (Auto) 0.9 % Basophils (%) (Auto) 0.6 % Neutrophils # (Auto) 6.9 TH/MM3 Lymphocytes # (Auto) 1.6 TH/MM3 Monocytes # (Auto) 0.7 TH/MM3 Eosinophils # (Auto) 0.1 TH/MM3 Basophils # (Auto) 0.1 TH/MM3 CBC Comment DIFF FINAL Differential Comment Prothrombin Time 9.6 SEC Prothromb Time International Ratio 0.9 RATIO Activated Partial Thromboplast Time 25.0 SEC Blood Urea Nitrogen 11 MG/DL Creatinine 0.71 MG/DL Random Glucose 87 MG/DL Total Protein 5.8 GM/DL Albumin 2.2 GM/DL Calcium Level 7.5 MG/DL Magnesium Level 2.1 MG/DL Alkaline Phosphatase 118 U/L Aspartate Amino Transf (AST/SGOT) 43 U/L Alanine Aminotransferase (ALT/SGPT) 29 U/L Total Bilirubin 0.2 MG/DL Sodium Level 142 MEQ/L Potassium Level 3.4 MEQ/L Chloride Level 109 MEQ/L Carbon Dioxide Level 25.3 MEQ/L Anion Gap 8 MEQ/L Estimat Glomerular Filtration Rate 98 ML/MIN Total Creatine Kinase 335 U/L Creatine Kinase MB 2.5 NG/ML Creatine Kinase MB % 0.7 % Troponin I LESS THAN 0.02 NG/ML B-Type Natriuretic Peptide 65 PG/ML Lipase 128 U/L Urine Color LIGHT-YELLOW Urine Turbidity CLEAR Urine pH 6.0 Urine Specific [place] 1.010 Urine Protein TRACE mg/dL Urine Glucose (UA) NEG mg/dL Urine Ketones NEG mg/dL Urine Occult Blood MOD Urine Nitrite NEG Urine Bilirubin NEG Urine Urobilinogen LESS THAN 2.0 MG/DL Urine Leukocyte Esterase LARGE Urine RBC 29 /hpf Urine WBC 108 /hpf Urine Squamous Epithelial Cells 2 /hpf Urine Transitional Epithelial Cells 1 /hpf Urine Amorphous Sediment RARE Urine Bacteria RARE /hpf Microscopic Urinalysis Comment CULTURE INDICATED MDM Medical Decision Making Medical Screen Exam Complete: Yes Emergency Medical Condition: Yes Medical Record Reviewed: Yes Interpretation(s) Last Impressions Head CT 11/21/17 2147 Signed Impressions: Service Date/Time: Wednesday, February 08, 2017 22:06 - CONCLUSION: Negative noncontrast CT brain. Román Medina MD Chest X-Ray 02/08/172146 Signed Impressions: Service Date/Time: Wednesday, February 08, 2017 22:03 - CONCLUSION: The lungs are clear. Román Medina MD Differential Diagnosis Peripheral edema due to fluid shifts , versus preeclampsia, versus cardiomyopathy, versus DVT Narrative Course During the course of the patients emergency department visit, the patients history, examination, and differential diagnosis were reviewed with the patient. The patient was placed on a groundwater monitoring technician with oximetry and frequent blood pressure monitoring. The patient had IV access obtained and blood work sent for analysis. The patient had an ECG done on arrival that shows a sinus rhythm heart rate of 67, T waves inverted in lead 3, V1, V2. No acute ST segment elevation, QRS duration is 77 ms, QTC 404 ms. The patient on arrival is noted to have a blood pressure in the 120s systolic. A CT scan of the brain , chest x-ray, ultrasound of bilateral lower extremities was ordered. The patient was initially provided Tylenol by mouth. The patients laboratory studies were reviewed and remarkable for a white count of 9.3, hemoglobin 7.3 which is compared to previously in stable since the patient was discharged, platelets 208, neutrophils 73.6. CMP is remarkable for potassium of 3.4 which was supplemented orally, chloride 109, calcium 7.5, AST 43, alkaline phosphatase 118, CPK 335 with MB percent 0.7, troponin I less than 0.02, BNP is 65 ruling out this part of cardiomyopathy, lipase 128. PT 9.6, PTT 25, urinalysis shows moderate occult blood, large leukocyte esterase, RBCs 29 wbc's 108, rare bacteria. 2 squamous epithelial cells. Culture indicated. As the patient is with leukemia, we will hold off on treatment with antibiotics for a urinary tract infection while the await culture as the patient denies having any urinary symptoms and this is likely contaminant. Radiology studies were reviewed and remarkable for ultrasound of bilateral lower extremities is negative for DVT. Chest x-ray shows no acute abnormality. CT scan of the brain shows no acute abnormality. The patient has remained normotensive during her emergency department visit. The patient's hypoalbuminemia could be contributing to the patient's peripheral edema. I recommended that she increase the protein in her diet. I recommended that for the anemia she immediately started on the iron supplement. I recommended close follow-up with her limnologist for reexamination in 2 days and recheck of her blood pressure. The patient is resting comfortably and feels better, is alert and in no distress. The patients results and examination findings were discussed with the patient. The repeat examination is unremarkable and benign. The history, exam, diagnostic testing, and current condition do not suggest any significant pathology to warrant further testing, continued ED treatment, admission, or surgical evaluation at this point. The vital signs have been stable. The patient does not have uncontrollable pain, intractable vomiting, or other significant symptoms. The patient's condition is stable and appropriate for discharge. The patient will pursue further outpatient evaluation with a primary care physician or other designated or consulting physician as indicated in the discharge instructions. The patient expressed understanding and was agreeable with this plan. Diagnosis Primary Impression: Headache Qualified Codes: R51 - Headache Additional Impression: Lower extremity edema Referrals: Data Sciences Director 2 days Additional Instructions: Start on iron immediately. Increase the protein in her diet to increase her albumin to help with peripheral edema. Push fluids and get plenty of rest. Med/Other Pt SpecificInfo: No Change to Meds Disposition: 01 DISCHARGE HOME Condition: Stable Tamanna Monterroso MD Feb 08, 2017 22:30
[2017-02-08 22:36] LABS: INTERNATIONAL NORMALIZED RATIO 0.9 RATIO; PROTHROMBIN TIME - PATIENT 9.6 SEC (9.8-11.6)
[2017-02-08 22:38] LABS: ALT (GPT) 29 U/L (10-53); ANION GAP 8 MEQ/L (5-15); AST (GOT) 43 U/L (15-37); BICARBONATE 25.3 MEQ/L (21.0-32.0); BLOOD UREA NITROGEN 11 MG/DL (7-18); CHLORIDE 109 MEQ/L (98-107); GLOMERULAR FILTRATION RATE 98 ML/MIN (>89); MAGNESIUM 2.1 MG/DL (1.5-2.5); POTASSIUM 3.4 MEQ/L (3.5-5.1); SODIUM (NA) 142 MEQ/L (136-145)
[2017-02-08 22:42] LABS: ALKALINE PHOSPHATASE 118 U/L (45-117); CREATINE KINASE 335 U/L (26-192); TOTAL BILIRUBIN ADULT 0.2 MG/DL (0.2-1.0)
--- NOTE | 2017-02-08 22:48 | RADRPT ---
EXAM DATE/TIME: 02/08/2017 22:06 [facility] COMPARISON: No previous studies available for comparison. INDICATIONS : Cephalgia. RADIATION DOSE: 34.56 CTDIvol (mGy) MEDICAL HISTORY : Pre-eclampsia. SURGICAL HISTORY : None. ENCOUNTER: Initial ACUITY: 1 day PAIN SCALE: 6/10 LOCATION: cranial TECHNIQUE: Multiple contiguous axial images were obtained of the head. Using automated exposure control and adj ustment of the mA and/or kV according to patient size, radiation dose was kept as low as reasonably a chievable to obtain optimal diagnostic quality images. DICOM format image data is available electro nically for review and comparison. FINDINGS: CEREBRUM: The ventricles are normal for age. No evidence of midline shift, mass lesion, hemorrhage or acute in farction. No extra-axial fluid collections are seen. POSTERIOR FOSSA: The cerebellum and brainstem are intact. The 4th ventricle is midline. The cerebellopontine angle i s unremarkable. EXTRACRANIAL: The visualized portion of the orbits is intact. SKULL: The calvaria is intact. No evidence of skull fracture. CONCLUSION: Negative noncontrast CT brain. Román Medina MD on February 08, 2017 at 22:46 Board Certified Radiologist. This report was verified electronically.
[2017-02-08 22:55] LABS: CKMB 2.5 NG/ML (0.5-3.6)
[2017-02-08 23:08] LABS: BACTERIA, URINE RARE /hpf; BLOOD, URINE MOD (NEG); COMMENT (UR) CULTURE INDICATED; CULTURE IF INDICATED CULTURE INDICATED; GLUCOSE,URINE NEG (NEG); KETONE, URINE NEG (NEG); NITRITE,URINE NEG (NEG); SQUAMOUS EPITHELIAL CELL URINE 2 /hpf (0-5); TRANSITIONAL EPI CELLS, URINE 1 /hpf; URINE COLOR LIGHT-YELLOW (YELLW/STRAW)
[2017-02-08] MEDS ORDERED: ACETAMINOPHEN 325 MG TAB PO ONE (23:15)
--- NOTE | 2017-02-08 23:25 | RADRPT ---
EXAM DATE/TIME: 02/08/2017 22:51 [facility] COMPARISON: No previous studies available for comparison. INDICATIONS : Bilateral feet swelling. MEDICAL HISTORY : Asthma. Pre-eclampsia. Feet swelling. SURGICAL HISTORY : None. ENCOUNTER: Initial ACUITY: 3 days PAIN SCORE: 1/10 LOCATION: Bilateral legs. TECHNIQUE: Venous ultrasound of the left and right leg was performed from the inguinal ligament to the proximal calf. Real-time, color Doppler and spectral tracing, compression and augmentation techniques were us ed. FINDINGS: RIGHT LEG: There is normal compressibility of the deep venous system from the inguinal region to the proximal ca lf. No echogenic clot is seen in the lumen of the common femoral, femoral, popliteal, and posterior tibial veins. There is a normal response of the venous system to proximal and distal augmentation an d respiration. LEFT LEG: There is normal compressibility of the deep venous system from the inguinal region to the proximal ca lf. No echogenic clot is seen in the lumen of the common femoral, femoral, popliteal, and posterior tibial veins. There is a normal response of the venous system to proximal and distal augmentation an d respiration. CONCLUSION: Negative. No venous thrombosis of either lower extremity. Logan Barber MD on February 08, 2017 at 23:24 Board Certified Radiologist. This report was verified electronically.
[2017-02-10] MEDS ORDERED: FOLI1CAP7 PO (18:09)
[2017-02-10] MEDS ORDERED: ZOLO50TA PO (18:09)
[2017-02-10] MEDS ORDERED: PREN29TA PO (18:10)
--- NOTE | 2017-02-11 08:50 | EKG ---
Date Performed: 02/08/2017 Time Performed: 22:23:26 PTAGE: 26 years EKG: Sinus rhythm POSSIBLE RIGHT VENTRICULAR CONDUCTION DELAY BORDERLINE ECG NO PREVIOUS TRACING DOCTOR: Ted Pike Interpretating Date/Time 02/11/2017 08:48:44
== END 2017-02-08 23:58 | disposition home or self-care (01) ==
LOC: NEPE 21:28
DX: O99.89 Other specified diseases and conditions complicating pregnancy, childbirth and the puerperium (principal); R51 Headache; R60.0 Localized edema; E88.09 Other disorders of plasma-protein metabolism, not elsewhere classified; O90.81 Anemia of the puerperium; B96.89 Other specified bacterial agents as the cause of diseases classified elsewhere; O13.5 Gestational [pregnancy-induced] hypertension without significant proteinuria, complicating the puerperium; J45.909 Unspecified asthma, uncomplicated; Z79.899 Other long term (current) drug therapy
CPT/HCPCS: 70450; 71010; 80053; 81001; 82550; 82552; 83690; 83735; 83880; 84484; 85025; 85610; 85730; 87086; 93005; 93970; 99285